=== PATIENT | female | born 1975 | race Hispanic/Latino ===

== ENCOUNTER 2022-04-20 23:09 | Emergency (ER) | payer BC, OTHER ==
[~2022-04-20] VITALS: Ht 160 cm; Wt 78.5 kg
[~2022-04-20 23:09] MED LIST: FLAGYL; SYNTHROID
[2022-04-20 23:30] LABS: BASOPHILS % 0.3 % (0.0-1.0); EOSINOPHILS # (AUTO) 0.1 (0.0-0.4); EOSINOPHILS % 1.2 % (0.0-6.0); HEMATOCRIT 39.4 % (34.2-44.1); HEMOGLOBIN 12.8 g/dL (12.0-16.0); LYMPHOCYTES # (AUTO) 2.3 (1.0-3.2); LYMPHOCYTES % 29.5 % (18.0-39.1); MEAN CORPUSCULAR HEMOGLOBIN 29.8 pg (28-32); MEAN CORPUSCULAR HGB CONC 32.5 g/dL (31-35); MEAN CORPUSCULAR VOLUME 91.6 fL (81-99); MONOCYTES # (AUTO) 0.6 (0.2-0.8); MONOCYTES % 8.4 % (4.4-11.3); NEUTROPHILS # (AUTO) 4.6 (2.1-6.9); NEUTROPHILS % 60.2 % (38.7-80.0); PLATELET COUNT 184 x10e3/uL (140-360); RED CELL DISTRIBUTION WIDTH 13.7 % (11.7-14.4)
[2022-04-20 23:47] LABS: ALBUMIN 4.2 g/dL (3.5-5.0); ALBUMIN/GLOBULIN RATIO 1.2 (0.8-2.0); ANION GAP 12.5 mmol/L (8-16); CREATININE, SERUM 0.77 mg/dL (0.57-1.11); POTASSIUM 3.5 mmol/L (3.5-5.1)
[2022-04-21 00:04] LABS: CLARITY,URINE SL CLOUDY (CLEAR); COLOR,URINE YELLOW (YELLOW); LEUKOCYTE ESTERASE ,URINE SMALL (NEGATIVE)
[2022-04-21 00:05] LABS: KETONES,URINE TRACE (NEGATIVE); NITRITE,URINE NEGATIVE (NEGATIVE); PROTEIN,URINE DIPSTICK TRACE (NEGATIVE); URINE UROBILINOGEN 1 mg/dL (0.2 - 1)
[2022-04-21 00:09] LABS: RBC,URINE 0-5 /HPF (0-5)
[2022-04-21 00:10] LABS: BACTERIA,URINE MODERATE /HPF; EPITHELIAL CELLS,URINE MANY /LPF
[2022-04-21] MEDS ORDERED: CEPHALEXIN500 MG PO (00:48)
[2022-04-21 01:10] VITALS: BP 117/63
== END 2022-04-21 00:54 | disposition home or self-care (01) ==
LOC: ER 23:18
DX: R55 Syncope and collapse (principal); R82.71 Bacteriuria
CPT/HCPCS: 0223U; 36415; 70450; 80053; 81001; 83880; 84484; 84702; 85025; 93005; 99284

== ENCOUNTER 2022-08-12 08:24 | Emergency (ER) | payer BC ==
[~2022-08-12] VITALS: Ht 160 cm; Wt 95.3 kg
[~2022-08-12 08:24] MED LIST changes: +CEPHALEXIN500 MG PO
[2022-08-12] MEDS ORDERED: SODIUM CHLORIDE 0.9% 1000ML 1,000 ML IV STA (08:27)
[2022-08-12] MEDS ORDERED: ONDANSETRON HCL INJ 2MG/ML 2ML 2 MG/ML VIAL IV PRN (08:30)
[2022-08-12] MEDS ORDERED: DICYCLOMINE HCL 20 MG/2 ML VIAL IM ONE (08:30)
[2022-08-12 08:42] LABS: BASOPHILS # (AUTO) 0.1 (0.0-0.1); BASOPHILS % 0.3 % (0.0-1.0); EOSINOPHILS # (AUTO) 0.2 (0.0-0.4); EOSINOPHILS % 1.2 % (0.0-6.0); HEMATOCRIT 42.5 % (34.2-44.1); HEMOGLOBIN 13.4 g/dL (12.0-16.0); LYMPHOCYTES # (AUTO) 1.3 (1.0-3.2); LYMPHOCYTES % 8.6 % (18.0-39.1); MEAN CORPUSCULAR HEMOGLOBIN 29.4 pg (28-32); MEAN CORPUSCULAR HGB CONC 31.5 g/dL (31-35); MEAN CORPUSCULAR VOLUME 93.2 fL (81-99); MONOCYTES % 7.1 % (4.4-11.3); NEUTROPHILS % 82.5 % (38.7-80.0); PLATELET COUNT 191 x10e3/uL (140-360); RED BLOOD COUNT 4.56 x10e6/uL (3.6-5.1); RED CELL DISTRIBUTION WIDTH 13.1 % (11.7-14.4)
[2022-08-12 09:01] LABS: ALANINE AMINOTRANSFERASE 18 IU/L (0-55); ALBUMIN 4.5 g/dL (3.5-5.0); ALBUMIN/GLOBULIN RATIO 1.5 (0.8-2.0); ALKALINE PHOSPHATASE 81 IU/L (40-150); ANION GAP 15.8 mmol/L (8-16); BLOOD UREA NITROGEN < 5 mg/dL (7-26); CARBON DIOXIDE 21 mmol/L (22-29); CHLORIDE 102 mmol/L (98-107); GLUCOSE 111 mg/dL (74-118); LIPASE 24 U/L (8-78); POTASSIUM 3.8 mmol/L (3.5-5.1); SODIUM 135 mmol/L (136-145)
[2022-08-12 09:02] LABS: BUN/CREATININE RATIO 7 (6-25)
[2022-08-12] MEDS ORDERED: IOPAMIDOL 370 MG/ML 100 ML INFUS..BTL INJ ONE (09:19)
[2022-08-12 09:55] LABS: CLARITY,URINE CLEAR (CLEAR); COLOR,URINE YELLOW (YELLOW); KETONES,URINE NEGATIVE (NEGATIVE); LEUKOCYTE ESTERASE ,URINE NEGATIVE (NEGATIVE); NITRITE,URINE NEGATIVE (NEGATIVE); PROTEIN,URINE DIPSTICK NEGATIVE (NEGATIVE); URINE UROBILINOGEN 0.2 mg/dL (0.2 - 1)
[2022-08-12 10:04] LABS: BACTERIA,URINE RARE /HPF; EPITHELIAL CELLS,URINE RARE /LPF; WBC,URINE (MAN) 0-5 /HPF (0-5)
[2022-08-12] MEDS ORDERED: DICYCLOMINE HCL20 MG PO (10:12)
== END 2022-08-12 10:23 | disposition home or self-care (01) ==
LOC: ER 08:30
DX: D25.9 Leiomyoma of uterus, unspecified (principal); Z98.84 Bariatric surgery status; D68.51 Activated protein C resistance; Z88.6 Allergy status to analgesic agent; Z88.8 Allergy status to other drugs, medicaments and biological substances
CPT/HCPCS: 36415; 74177; 80053; 81001; 83690; 84702; 85025; 99284; J0500; J2405; J7030; Q9967